=== PATIENT | male | born 1955 | race Caucasian/White ===

== ENCOUNTER 2019-05-04 15:27 | Inpatient (IN) ==
[2019-05-04] MEDS ORDERED: ASPIRIN PO ONE (15:54)
--- NOTE | 2019-05-04 16:05 | EKG Report ---
Test Performed on : 05/04/2019 3:48:03 PM Test Reason : SOB Blood Pressure : / mmHG Vent. Rate : 098 BPM Atrial Rate : 098 BPM P-R Int : 142 ms QRS Dur : 078 ms QT Int : 332 ms P-R-T Axes : 084 007 080 degrees QTc Int : 423 ms Normal sinus rhythm. Normal ECG No previous ECGs available Unconfirmed Result
[2019-05-04 16:11] LABS: BASO# 0.02 X1000 (0.0-0.2); BASO% 0.1 % (0.0-0.8); EOS# 0.47 X1000 (0.0-0.7); EOS% 3.2 % (0.0-10.0); HEMATOCRIT 40.4 % (42.0-52.0); HEMOGLOBIN 13.5 g/dL (14.0-18.0); IMM GRAN# 0.04 X1000 (0.0-0.04); IMM GRAN% 0.3 % (0.0-0.5); LYMPH% 6.1 % (20.5-51.1); MCH 31.1 PG (27-31); MCHC 33.4 g/dL (33-37); MCV 93.1 FL (81-99); MONO# 0.77 X1000 (0.11-0.59); MONO% 5.2 % (1.7-9.3); MPV 10.1 FL (7.4-10.4); NEUT# 12.51 X1000 (1.4-6.5); NEUT% 85.1 % (42.2-75.2); PLT 254 X1000 (130-400); RBC 4.34 XMIL (4.7-6.1); RDW 14.9 % (11.5-14.5); WBC 14.71 X1000 (4.8-10.8)
--- NOTE | 2019-05-04 16:13 | Diag Imaging Result Doc PS360 ---
EXAM: CHEST-2 VIEWS 05/04/2019 HISTORY: SOB TECHNIQUE: PA and lateral chest COMMENT: There is flattening of the hemidiaphragms. There is marked emphysematous change in the upper lung zones. The heart size and pulmonary vascularity are within normal limits. There are no previous studies. Slightly increased interstitial markings are present in lung bases and there is apparent opacity posteriorly in the right lower lobe which may represent pneumonia. IMPRESSION: COPD. Questionable bronchopneumonia right lower lobe plus minus mild pulmonary edema. Electronically signed by Óscar Horvath 05/04/2019 4:11 PM
[2019-05-04] MEDS ORDERED: ZITHROMAX 500 MG/NS 500 MG/250 ML IVPB IV ONE (16:14)
[2019-05-04] MEDS ORDERED: DUONEB (A & A) INH ONE (16:14)
[2019-05-04] MEDS ORDERED: ROCEPHIN 1 GM in NS 50 ML IV ONE (16:14)
[2019-05-04 16:15] LABS: INR 1.03; PROTIME 13.6 Seconds (11.0-16.0)
[2019-05-04 16:16] LABS: PTT 33.8 Seconds (22.3-41.8)
[2019-05-04 17:02] LABS: AGAP 11; ALB/GLOB RATIO 1.5; ALBUMIN 3.7 g/dL (3.5-5.0); ALKALINE PHOSPHATASE 72 U/L (32-122); BUN 17 mg/dL (8-22); CHLORIDE 96 mmol/L (98-107); COSMO 274; CREATININE 0.8 mg/dL (0.7-1.2); ESTIMATED GFR > 60; GLUCOSE 140 mg/dL (70-104); GOT 62 U/L (10-34); GPT 55 U/L (10-44); POTASSIUM 4.7 mmol/L (3.5-5.1); SODIUM 135 mmol/L (136-145); TCO2 28 mmol/L (25-35); TOTAL BILIRUBIN 0.33 mg/dL (0.20-1.00); TOTAL PROTEIN 6.2 g/dL (6.3-8.3)
[2019-05-04 17:08] LABS: CK PROFILE 769 U/L (24-204)
[2019-05-04 17:29] LABS: CK INDEX 1.6 (0.0-2.5); CK-MB 12.21 ng/mL (0.0-5.0)
--- NOTE | 2019-05-04 17:50 | PROVIDER DOCUMENTATION ---
This chart was entered by Susi Schwartz Scribe, acting as scribe for Letitia Bansal MD. HPI-Respiratory General - General Chief Complaint: Shortness of Breath Stated Complaint: SOB DR GARCIA REFERRED Time Seen by Provider: 05/04/19 15:58 Source: patient, family, RN/MD (dr garcia call and spoke with er dr about sending pt to ed) Allergies/Adverse Reactions: Patient Allergies Allergy/AdvReac Type Severity Reaction Status Date / Time peanut Allergy ANAPHYLAXIS Verified 05/04/19 15:53 Home Medications: Home Medication List Medication Instructions Recorded Confirmed Last Taken Type Mometasone/Formoterol [Dulera 200 2 puff INH BID 12/16/15 05/04/19 1 Day Ago History Mcg/5 Mcg Inhaler] ~12/15/15 Albuterol Sulfate [Proair Hfa] 1 - 2 puff INHALATION Q4-6H PRN PRN 05/04/19 05/04/19 Unknown History Amlodipine [Norvasc] 10 mg PO QHS 05/04/19 05/04/19 Unknown History Buprenorphine HCl/Naloxone HCl 1 ea SUBLINGUAL BID 05/04/19 05/04/19 Unknown History [Suboxone 12 mg-3 mg Sl Film] Buspirone [Buspar] 15 mg PO TID 05/04/19 05/04/19 Unknown History Duloxetine [Cymbalta] 60 mg PO DAILY 05/04/19 05/04/19 Unknown History Pregabalin [Lyrica] 300 mg PO BID 05/04/19 05/04/19 Unknown History Trazodone [Desyrel] 0.5 - 1 tab PO QHS 05/04/19 05/04/19 Unknown History Triamcinolone 0.1% Cr [Kenalog 1 applicatn TOP BID PRN 05/04/19 05/04/19 Unknown History 0.1% Cream] Umeclidinium/Vilanterol [Anoro 1 puff INH RTDAILY 05/04/19 05/04/19 Unknown History Ellipta 62.5-25 Mcg INH] - History of Present Illness-Resp Nature of Presenting Problem: 63 yowm presents to the ed with c/o sob and chest pain with cough only. pt sts has been intermittent and worsening since onset of 1.5 weeks. pt went to see dr garcia PCP today and had chest xray done and dx with possible PNA and pulmonary edema. pt is a current smoker and is on continuous O2 normally at 2LPM but has had to go up to 5LPM today with sx still worsening with exertion. pt on exam is frail in apperance and sts while lying in bed the sob has not been that bad but if he were to get up and walk to the door he would not be able to breathe Quality of Pain: reports: fullness Severity in ED: reports: moderate Onset/Duration: reports: other (1.5 weeks) Timing: reports: still present, intermittent, getting worse Context: reports: recent URI Exposure: reports: unknown cause Cough Quality/Degree: reports: mild, productive cough (green) Episode Frequency: chronic episodes Current Respiratory Medication Therapy: Initiated see nurses note Modifying Factors: improves with: oxygen, rest, sitting upright. worse with: exertion Associated Symptoms: reports: chest pain/soreness (with cough only), cough, hurts to breathe, nasal drainage, shortness of breath. denies: fever/chills, wheezing Similar Symptoms Previously?: Yes (hx of copd, PNA and chf) Recently seen or treated by another doctor?: Yes (dr garcia today) Review of Systems - Adult - REVIEW OF SYSTEMS - ADULT Constitutional: denies: chills, fever Eyes: reports: no symptoms reported Ears, Nose, Mouth & Throat: reports: no symptoms reported Cardiovascular: reports: see HPI, chest pain (with cough only). denies: palpitations, syncope Respiratory: reports: see HPI, cough, dyspnea on exertion, excessive sputum production (green), shortness of breath Gastrointestinal: denies: abdominal pain, diarrhea, nausea, vomiting Genitourinary: reports: no symptoms reported Musculoskeletal: denies: back pain, neck pain Integumentary: reports: no symptoms reported Neurological: denies: dizziness/vertigo, headache/migraines Psychiatric: reports: no symptoms reported Endocrine: reports: no symptoms reported Hematologic/Lymphatic: reports: no symptoms reported Allergic/Immunologic: reports: no symptoms reported All Other Systems: Reviewed and Negative Past History - Adult - PAST MEDICAL HISTORY-ADULT Review of Records: reports: Old Records Reviewed, Nursing Assessment Review, Medications Reviewed, Social history reviewed & non-contributory. Major Childhood Illnesses: reports: denies history Cardiovascular: reports: CHF, HTN Respiratory: reports: COPD, pneumonia Gastrointestinal: reports: denies history Genitourinary: reports: denies history Musculoskeletal: reports: denies history Hand Dominance: Right Handed Neurological: reports: denies history Psychiatric: reports: denies history Endocrine/Immune: reports: denies history Other Conditions: reports: denies history - PRIOR SURGERIES/PROCEDURES Surgical/Procedure History: reports: reviewed, not pertinent - IMMUNIZATION STATUS Childhood Immunizations: See Nurse Assessment Flu Vaccine: See Nurse Assessment - FAMILY HISTORY Family History: reviewed, not pertinent - SOCIAL HISTORY Smoking: cigarettes, greater than 1 pack/day Provider spent 3-5 mins advising pt. on dangers of tobacco.: Discussed manners to quit use, and f/u contacts for add'l counseling. Substance Use: denies Alcohol Use Frequency: never Living Situation: family Physical Exam-General - PHYSICAL EXAM-ADULT Initial Vital Signs Reviewed: Yes - CONSTITUTIONAL General Appearance: alert, mild distress, thin - EYES Eyes: PERRL/EOMI, pink conjunctivae - HEAD, EARS, NOSE, MOUTH & THROAT HENMT: moist mucous membranes, dental decay - NECK Neck: non-tender, full range of motion, normal inspection - RESPIRATORY Respiratory: chest non-tender, respiratory distress (mild), decreased breath sounds (on the right with course breath sounds), other (pt sts with even mild exertion sob worsenes.) - CARDIOVASCULAR Cardiovascular: normal peripheral pulses, regular rate, rhythm, other (chest wa ll pain with cough only) - CHEST (BREASTS) Chest/Breast: deferred - GASTROINTESTINAL (ABDOMEN) Abdominal Exam: normal bowel sounds, non tender, soft - GENITOURINARY Male Genitalia: deferred Rectal Exam: deferred Hemoccult Exam: deferred - LYMPHATIC Lymphatic: no adenopathy - MUSCULOSKELETAL Back Exam: normal inspection, no CVA tenderness, no vertebral tenderness Extremity: normal range of motion, non-tender, normal inspection - SKIN Integumentary: normal color, normal turgor, warm/dry - NEUROLOGIC Neurologic: grossly normal - PSYCHIATRIC Psych/Mental Status: normal mood/affect, normal thought content, normal thought process, oriented x 3 - HEART Score HEART Score: History: Slightly Suspicious HEART Score: ECG: Non-Specific Repolarization Disturbance/LBBB/PM HEART Score: Age: 45-65 Years HEART Score: Risk Factors for Atherosclerotic Disease: 1 or 2 Risk Factors HEART Score: Troponin: < or = Normal Limit Total HEART Score:: 3 Progress - PLAN OF CARE/RESULTS Progress/Plan/Lab Results: Vital Signs - 8 hr 05/04/19 15:49 Temperature 98.5 F Pulse Rate 95 H Respiratory Rate 18 Blood Pressure 123/77 O2 Sat by Pulse Oximetry 94 L Laboratory Results - last 24 hr 05/04/19 05/04/19 05/04/19 15:52 15:52 15:52 WBC 14.71 H RBC 4.34 L Hgb 13.5 L Hct 40.4 L MCV 93.1 MCH 31.1 H MCHC 33.4 RDW Std Deviation 14.9 H Plt Count 254 MPV 10.1 Immature Gran % (Auto) 0.3 Neut % (Auto) 85.1 H Lymph % (Auto) 6.1 L [place] % (Auto) 5.2 Eos % (Auto) 3.2 Baso % (Auto) 0.1 Immature Gran # (Auto) 0.04 Neut # (Auto) 12.51 H Lymph # (Auto) 0.90 L [place] # (Auto) 0.77 H Eos # (Auto) 0.47 Baso # (Auto) 0.02 PT INR PTT (Actin FS) Sodium 135 L Potassium 4.7 Chloride 96 L Carbon Dioxide 28 Anion Gap 11 BUN 17 Creatinine 0.8 Estimated GFR/1.73 m2 > 60 BUN/Creatinine Ratio 21 Glucose 140 H Calculated Osmolality 274 Calcium 9.0 Total Bilirubin 0.33 AST 62 H ALT 55 H Alkaline Phosphatase 72 Creatine Kinase 769 H Creatine Kinase Index 1.6 CK-MB (CK-2) 12.21 H Troponin T Srx-X-Oaqfilsjzum Pept 87 Total Protein 6.2 L Albumin 3.7 Globulin 2.5 Albumin/Globulin Ratio 1.5 05/04/19 05/04/19 15:52 15:52 WBC RBC Hgb Hct MCV MCH MCHC RDW Std Deviation Plt Count MPV Immature Gran % (Auto) Neut % (Auto) Lymph % (Auto) [place] % (Auto) Eos % (Auto) Baso % (Auto) Immature Gran # (Auto) Neut # (Auto) Lymph # (Auto) [place] # (Auto) Eos # (Auto) Baso # (Auto) PT 13.6 INR 1.03 PTT (Actin FS) 33.8 Sodium Potassium Chloride Carbon Dioxide Anion Gap BUN Creatinine Estimated GFR/1.73 m2 BUN/Creatinine Ratio Glucose Calculated Osmolality Calcium Total Bilirubin AST ALT Alkaline Phosphatase Creatine Kinase Creatine Kinase Index CK-MB (CK-2) Troponin T < 0.010 Mpl-V-Mboiswuzlhr Pept Total Protein Albumin Globulin Albumin/Globulin Ratio Orders Category Date Time Status Cardiac Monitoring DIRECTED Care 05/04/19 15:54 Active Oxygen Therapy- ED Nursing DIRECTED Care 05/04/19 15:54 Active Saline Loc NOW Care 05/04/19 15:54 Active CHEST-2 VIEWS [RAD] Stat Exams 05/04/19 15:54 Completed BLOOD CULTURE [BLDCUL] Stat Lab 05/04/19 16:52 Results CBC WITH ELECTRONIC DIFF [HEME] Stat Lab 05/04/19 15:52 Completed CK PROFILE [SP CHEM] Stat Lab 05/04/19 15:52 Completed COMPREHENSIVE METABOLIC PANEL [CHEM] Stat Lab 05/04/19 15:52 Completed PRO B-NATRIURETIC PEPTIDE Stat Lab 05/04/19 15:52 Completed PROTIME WITH INR [COAG] Stat Lab 05/04/19 15:52 Completed PTT [COAG] Stat Lab 05/04/19 15:52 Completed TROPONIN T Stat Lab 05/04/19 15:52 Completed Albuterol 2.5MG/Ipratrop 0.5MG [Duoneb (A & A)] Med 05/04/19 16:14 Discontinued 3 ml INH NOW ONE Aspirin Med 05/04/19 15:54 Discontinued 325 mg PO NOW ONE Azithromycin 500 mg/Ns [Zithromax 500 mg/Ns] Med 05/04/19 16:14 Discontinued 500 mg in 250 ml IV NOW CefTRIAXONE [Rocephin] 1 gm Med 05/04/19 16:14 Discontinued 0.9% Sodium Chloride Inj [Ns] 50 ml IV NOW Aerosol Treatments Routine Oth 05/04/19 16:15 Completed Aerosol Treatments Stat Oth 05/04/19 16:15 Completed CP/SOB/Palp >45 yrs of Age Stat Oth 05/04/19 15:54 Ordered EKG [EKG] Stat Ther 05/04/19 15:[address] garcia sent pt to ed and spoke with er about possible PNA and pulmonary edema. pt has had to turn home O2 up at times today to 5LPM and at baseline pt uses home O2 at 2 LPM via N/C Result Diagrams: 05/04/19 15:52 05/04/19 15:52 - REASSESSMENT Reassessment #1 Time Reassessed: 17:07 Status: improving - EKG 1 Time of EKG reading by physician:: 15:48 EKG Read and Signed by:: Letitia Bansal EKG Interpretation (*Must complete 3 of following elements*): Normal Rate: 98 Rhythm: nsr [place]: normal QRS: normal [place] Interval: normal ST Wave: normal - XRAY 1 XRAY: Bilateral XRAY Study: Chest Impression: See EMR Report (EXAM: CHEST-2 VIEWS 05/04/2019 HISTORY: SOB TECHNIQUE: PA and lateral chest COMMENT: There is flattening of the hemidiaphragms. There is marked emphysematous change in the upper lung zones. The heart size and pulmonary vascularity are within normal limits. There are no previous studies. Slightly increased interstitial markings are present in lung bases and there is apparent opacity posteriorly in the right lower lobe which may represent pneumonia. IMPRESSION: COPD. Questionable bronchopneumonia right lower lobe plus minus mild pulmonary edema. Electronically signed by Óscar Horvath 05/04/2019 4:11 PM 05/04/19 1611 Interpreting Physician: Óscar Horvath MD Dictated Date/Time: 05/04/19 1609 cc: Letitia Bansal MD; Francisco Garcia MD) - CONSULTS/PCP/HOSPITALIST Notification #1 *Consult/PCP/Hospitalist*: hospitalist Time Discussed: 17:37 Consult Disposition: Admit Departure - Departure Date of Disposition Decision: 05/04/19 Time of Disposition Decision: 17:45 DIAGNOSIS: Tobacco use disorder, Dyspnea PNA (pneumonia) Qualifiers: Pneumonia type: due to unspecified organism Laterality: right Lung location: unspecified part of lung Qualified Code(s): J18.9 - Pneumonia, unspecified organism Disposition: ADMITTED INPATIENT 09 Certified Medical Emergency: Emergent Condition: Stable Referrals and Follow-Ups: Francisco Garcia MD [Primary Care Provider] - - Critical Care Note This patient required my direct & personal management of CC.: Yes Total Time (mins): 36 Critical Care Statement: This patient required my direct personal management to treat or rule out processes, the absence of which, could potentiallly result in sudden, clinically significant life or limb threatening deterioration. Attestation - Physician/ NINO Attestation Patient care was provided by Advanced Practice Provider:: No The physician spent face to face time with patient:: Yes Advanced Practice Provider documentation review:: Supervising physician onsite and consulted in the evaluation and care of this patient. The physician did have a face to face encounter with the patient. This chart was documented by the indicated scribe, (Susi Schwartz Scribe) and accurately reflects the services I performed and decisions made by me, Letitia Bansal MD, as attested by the provider's signature.
[2019-05-04] MEDS: SOLU-MEDROL IV SCH (18:25)
[2019-05-04] MEDS ORDERED: ZOFRAN IV PRN (18:42)
[2019-05-04] MEDS ORDERED: TYLENOL PO PRN (18:42)
[2019-05-04] MEDS ORDERED: HEPARIN SUBQ SCH (18:42)
[2019-05-04] MEDS ORDERED: BENADRYL PO PRN ×2 (18:43→18:48)
--- NOTE | 2019-05-04 19:04 | HISTORY AND PHYSICAL ---
PRIMARY CARE PHYSICIAN: Radha Fregoso CHIEF COMPLAINT: Shortness of breath. HISTORY OF PRESENT ILLNESS: This is a 63-year-old male with a past medical history of congestive heart failure, COPD, he is an active smoker and hypertension who presented to the emergency department complaining of worsening cough. Actually, he reports that the cough was getting worse in the last week and half ago. He had intermittent cough, but he noticed during the last week greenish sputum production. He noticed that he needs to use more oxygen. He is on home oxygen 2 L/minute. He was using today 5 L of oxygen with no good relief. So he went to see his primary care doctor and apparently had an x-ray done which indicate pneumonia so that is why he was sent to the emergency department. Here, upon ER evaluation, his white cell count was elevated at 14.71, with normal BMP. So he is going to be admitted for further evaluation and treatment. The x-ray here in the ER showed questionable bronchopneumonia in the right lower lobe plus/minus mild pulmonary edema as well. PAST MEDICAL HISTORY: 1. Patient is currently smoking. He used to smoke 3 packs per day since he was 19, but he said he is not smoking as much as he was. He is smoking 4 to 5 cigarettes per day during the last the year. 2. Hypertension. 3. Severe degenerative osteoarthritis in the neck and in the back. 4. He has congestive heart failure. He sees Dr. Armand Leon in the office. Last visit was 6 months ago. 5. Diverticulosis. PAST SURGICAL HISTORY: The patient has had 11 surgeries. ALLERGIES: Patient is not allergic to any medication. SOCIAL HISTORY: As we mentioned before, he smokes 3 to 4 cigarettes per day during the last year, but before he was smoking up to 3 packs per day. He denies drinking any alcohol. He denies using any illicit drugs. He lives alone. He is a . REVIEW OF SYSTEMS: Eleven systems were reviewed and all symptoms are related to H P. FAMILY HISTORY: Noncontributory. PHYSICAL EXAMINATION: VITAL SIGNS: Temperature 98.5 degrees, heart rate 95, respiratory rate 18, blood pressure 123/77, O2 saturation 94% on room air. GENERAL EXAMINATION: This is a chronically ill-appearing 63-year-old male, lying in bed, in no acute distress. HEENT: Head is normocephalic, atraumatic. Poor dentition. Mucous membranes moist. Pupils equal, round, reactive to light and accommodation. NECK: Supple. No JVD noted. No carotid bruits. No lymphadenopathy. No thyromegaly. CARDIOVASCULAR: S1, S2 heard. No murmurs, gallops, or rubs. Regular rate and rhythm. RESPIRATORY EXAM: Decreased breath sounds globally with minimal wheezing in both pulmonary bases and crackles as well. Patient is not using any accessory muscles or having work of breathing. ABDOMEN: Soft, nontender to palpation. Bowel sounds present. No organomegaly. EXTREMITIES: No clubbing, cyanosis, or edema. Peripheral pulses present in both legs. NEUROLOGICAL: The patient alert oriented x3. Moves 4 extremities. LABORATORY DATA: White cell count 14.71, hemoglobin 13.5, hematocrit 40.4, platelets 454,000. Sodium 135, glucose 140, AST 62, ALT 55. IMAGING: The x-ray here show COPD with questionable bronchopneumonia right lower lobe plus-minus mild pulmonary edema. ASSESSMENT AND PLAN: 1. Acute on chronic respiratory failure secondary to bronchopneumonia. 2. Chronic obstructive pulmonary disease exacerbation. 3. Hypertension. 4. Chronic back pain. 5. Congestive heart failure. At this point, patient is going to be admitted to the hospital for further treatment for this right lower lobe bronchopneumonia. We will start Zosyn on this patient at 3.375 mg IV q.6 hours. We will star breathing treatments with DuoNeb every 4 hours as scheduled and every 2 hours p.r.n. We will start also IV steroids as well. We will continue with home medications. Patient is on Suboxone for chronic back pain. For documented congestive heart failure we are going to do an echocardiogram and we will go from there. He is not on any diuretic. His blood pressure is fine, so we will restart his home medications. Considering his long-standing history of smoking, we will go ahead and order a CT of the thorax without contrast to have a better visualization of the lung anatomy. We will continue to monitor this patient closely. cc: MD BLANCA John
[2019-05-04] MEDS: DUONEB (A & A) INH SCH ×2 (19:52→23:40)
[2019-05-04] MEDS: DULERA 200 MCG/5 MCG INHALER INH SCH (20:09)
[2019-05-04] MEDS ORDERED: NORVASC PO SCH (21:00)
[2019-05-04] MEDS ORDERED: LYRICA PO SCH (21:00)
[2019-05-04] MEDS ORDERED: DESYREL PO SCH (21:00)
[2019-05-04] MEDS: ZOSYN 3.375 GM in NS 50 ML IV SCH (23:59)
[2019-05-05] MEDS: DUONEB (A & A) INH SCH ×2 (03:32→07:34)
[2019-05-05] MEDS: SOLU-MEDROL IV SCH (03:33)
[2019-05-05 05:12] LABS: ALLEN TEST YES; BE 1.7 mmoll (-3.0-3.0); BLOOD TYPE ARTERIAL; HCO3-(ACT) 26.1 mmoll (20.0-26.0); METHB 0.9 % (0.0-1.5); O2(CT) 18.7 mL/dL (15.0-23.0); O2HB 93.5 % (95.0-99.0); PCO2(98.6) 42 mmHg (35-45); PO2(98.6) 78 mmHg (60-100); SAMPLE BLOOD; SAO2 97.7 % (95.0-100.0); THB 14.2 g/dL (11.5-17.4); pH(98.6) 7.41 (7.35-7.45)
[2019-05-05 05:13] LABS: MODALITY CANNULA
[2019-05-05 06:08] LABS: BASO# 0.01 X1000 (0.0-0.2); BASO% 0.2 % (0.0-0.8); EOS# 0.01 X1000 (0.0-0.7); EOS% 0.2 % (0.0-10.0); HEMATOCRIT 41.2 % (42.0-52.0); HEMOGLOBIN 13.7 g/dL (14.0-18.0); IMM GRAN# 0.02 X1000 (0.0-0.04); IMM GRAN% 0.3 % (0.0-0.5); LYMPH# 0.36 X1000 (1.2-3.4); LYMPH% 5.8 % (20.5-51.1); MCH 31.1 PG (27-31); MCHC 33.3 g/dL (33-37); MCV 93.4 FL (81-99); MONO# 0.07 X1000 (0.11-0.59); MONO% 1.1 % (1.7-9.3); MPV 10.5 FL (7.4-10.4); NEUT# 5.76 X1000 (1.4-6.5); NEUT% 92.4 % (42.2-75.2); PLT 246 X1000 (130-400); RBC 4.41 XMIL (4.7-6.1); RDW 15.2 % (11.5-14.5); WBC 6.23 X1000 (4.8-10.8)
[2019-05-05] MEDS: ZOSYN 3.375 GM in NS 50 ML IV SCH (06:23)
[2019-05-05 07:14] LABS: AGAP 16; BUN 17 mg/dL (8-22); CALCIUM 9.7 mg/dL (8.8-10.2); CHLORIDE 99 mmol/L (98-107); COSMO 283; CREATININE 0.9 mg/dL (0.7-1.2); ESTIMATED GFR > 60; GLUCOSE 140 mg/dL (70-104); POTASSIUM 5.9 mmol/L (3.5-5.1); SODIUM 140 mmol/L (136-145); TCO2 25 mmol/L (25-35)
[2019-05-05 07:17] LABS: LYMPHS 5 % (21-51); SEGS 95 % (42-75)
[2019-05-05] MEDS: DULERA 200 MCG/5 MCG INHALER INH SCH (07:34)
[2019-05-05 08:05] VITALS: BP 114/51
--- NOTE | 2019-05-05 08:43 | Diag Imaging Result Doc PS360 ---
CT THORAX W/CONTRAST - 05/05/2019 INDICATION: pneumonia COMPARISON: Previous chest x-ray FINDINGS: There is end-stage COPD. There is chronic bronchitis with bronchial wall thickening worse in the lower lobes. There is also multifocal mucus impaction of segmental airways mainly in the right lower lobe. No substantial infiltrates. There is some scarring in the peripheral lung bases. There is a pulmonary nodule in the anterior segment of the left lower lobe. This measures about 11 mm. No pneumothorax or pleural effusion. There is significant constipation in the upper abdomen. Otherwise upper abdomen appears normal. Heart and great vessels are normal. No adenopathy. IMPRESSION: 1. Severe COPD. Severe chronic bronchitis. 2. Left lower lobe pulmonary nodule. Follow-up recommended. 3. Constipation. This exam was performed using automated exposure control, adjustment of mA or kV according to patient size, and/or use of iterative reconstruction technique Electronically signed by Zachary Cruz 05/05/2019 8:41 AM
[2019-05-05] MEDS ORDERED: SUBOXONE 8 MG/2 MG SL SCH (09:00)
[2019-05-05] MEDS ORDERED: PRILOSEC PO SCH (09:00)
[2019-05-05] MEDS ORDERED: BUSPAR PO SCH (09:00)
[2019-05-05] MEDS ORDERED: LOKELMA POWDER PACKET PO SCH (09:00)
[2019-05-05] MEDS ORDERED: CYMBALTA PO SCH (09:00)
--- NOTE | 2019-05-06 09:45 | DISCHARGE SUMMARY ---
ADMISSION DATE: 05/04/2019 DISCHARGE DATE: 05/05/2019 This is an AMA discharge. The patient has the following diagnoses at time of discharge. DISCHARGE DIAGNOSES: 1. Acute on chronic respiratory failure secondary to pneumonia. 2. Acute bronchopneumonia. 3. Chronic obstructive pulmonary disease exacerbation. 4. Hypertension. 5. Chronic back pain. 6. Congestive heart failure. 7. Left lung pulmonary nodule. HOSPITAL COURSE: This is a 63-year-old male with a past medical history of congestive heart failure, COPD. He is an active smoker still. Presents to the emergency department complaining of greenish cough plus worsening shortness of breath. He was admitted to the hospital. He was placed on antibiotics. Because of the heavy history of smoking, we decided to do a CT of the chest. It was ordered yesterday afternoon, but was finally done this morning. I round on him this morning; he was okay with his progress receiving antibiotics and breathing treatments, but I was informed by nursing hydro generation supervisor this patient decided to leave [facility], that he was not upset with the staff here in the hospital, but he decided just to leave AMA. After this patient was gone, we find out that this patient had on the CT scan of the chest a pulmonary nodule of 11 mm in the left lower lobe. Considering his heavy history of smoking, we will try to contact him to inform him that he needs to have a followup with his primary care physician. As we mentioned before, this patient leaves the hospital AMA. cc: Pelon Monroe MD
== END 2019-05-05 09:30 | disposition left against medical advice (07) | DRG 193 ==
LOC: ED 15:27 → 2N 18:16
PROVIDERS: ATTEND Internal Medicine